=== PATIENT | female | born 1960 | race Caucasian/White ===

== ENCOUNTER 2017-01-19 09:50 | Emergency (ER) | payer BC ==
[2017-01-19 10:12] VITALS: BP 141/86
--- NOTE | 2017-01-19 10:28 | UC ---
Throat Pain/Nasal Roverto HPI - HPI Summary HPI Summary: 56 year old with sinus pressure Frontal sinus pain for 6 days, sx started with cough [ End ] - History of Current Complaint Chief Complaint: UCRespiratory Stated Complaint: SINUS Time Seen by Provider: 01/19/17 10:22 Hx Obtained From: Patient Hx Last Menstrual Period: 7 yr Onset/Duration: Gradual Onset Severity: Mild Cough: Productive Associated Signs & Symptoms: Positive: Sinus Discomfort, Nasal Discharge - Allergies/Home Medications Allergies/Adverse Reactions: Allergies Allergy/AdvReac Type Severity Reaction Status Date / Time Erythromycin AdvReac Intermediate Diarrhea Verified 01/19/17 10:13 Home Medications: Home Medications ValACYclovir (*) [Valtrex 500 mg (*)] 500 mg PO DAILY 01/19/17 [History Confirmed 01/19/17] PMH/Surg Hx/FS Hx/Imm Hx Previously Healthy: Yes Cardiovascular History: Hypertension Psychological History: Anxiety, Depression - Surgical History Surgical History: Yes Surgery Procedure, Year, and Place: HYSTERECTOMY, BLADDER BX, right 2nd toe - Family History Known Family History: Positive: Hypertension - mother Negative: Cardiac Disease, Diabetes - Social History Occupation: Employed Full-time Lives: With Family Alcohol Use: None Substance Use Type: None Smoking Status (MU): Never Smoked Tobacco - Immunization History Most Recent Tetanus Shot: FEB 2016 Review of Systems Constitutional: Fatigue ENT: Sore Throat, Ear Ache, Nasal Discharge, Sinus Congestion, Sinus Pain/ Tenderness Respiratory: Cough Is Patient Immunocompromised?: No All Other Systems Reviewed And Are Negative: Yes Physical Exam Triage Information Reviewed: Yes Appearance: Well-Appearing, No Pain Distress, Well-Nourished Vital Signs: Initial Vital Signs Temp 98.4 F 01/19/17 10:05 Pulse 63 01/19/17 10:05 BP 141/86 01/19/17 10:05 Pulse Ox 99 01/19/17 10:05 Vital Signs Reviewed: Yes Eye Exam: Normal ENT Exam: Normal ENT: Positive: Pharynx normal, Nasal congestion, TM dull, Other: - bilateral frontal sinus tenderness. Negative: Tonsillar exudate Dental Exam: Normal Neck exam: Normal Neck: Positive: 1 Respiratory Exam: Normal Cardiovascular Exam: Normal Musculoskeletal Exam: Normal Neurological Exam: Normal Psychological Exam: Normal Skin Exam: Normal Throat Pain/Nasal Course/Dx - Course Course Of Treatment: Viral at this time -- start Claritin and Flonase in the AM and in the PM use benadryl and Netti Pot. If your symptoms worsen over the next 3-4 days then start Augmentin - Differential Dx/Diagnosis Differential Diagnosis/HQI/PQRI: Sinusitis, Tonsillitis Provider Diagnoses: Sinusitis Discharge - Discharge Plan Condition: Good Disposition: HOME Prescriptions: Amoxicillin/Clavulanate TAB* [Augmentin TAB 875*] 875 mg PO BID #20 tab Patient Education Materials: Sinusitis (ED) Forms: *Work Release Referrals: No Primary Care Phys,NOPCP [Primary Care Provider] - 4 Days Additional Instructions: As we discussed -- start Claritin and Flonase in the AM and in the PM use benadryl and Netti Pot. If your symptoms worsen over the next 3-4 days then start Augmentin
== END 2017-01-19 10:45 | disposition home or self-care (01) ==
LOC: UCCORT 09:50
DX: J32.9 Chronic sinusitis, unspecified (principal); I10 Essential (primary) hypertension; F41.8 Other specified anxiety disorders; Z88.1 Allergy status to other antibiotic agents
CPT/HCPCS: 99212; G0463

== ENCOUNTER 2018-11-09 14:53 | Emergency (ER) | payer BC, OTHER ==
[2018-11-09 16:07] VITALS: BP 130/69
--- NOTE | 2018-11-09 16:16 | UC ---
General HPI - HPI Summary HPI Summary: L foot ran over by a wheelchair while at work today. pain base of great toe area. - History of Current Complaint Chief Complaint: UCLowerExtremity Stated Complaint: LT FOOT INJURY Time Seen by Provider: 11/09/18 15:56 Hx Obtained From: Patient Hx Last Menstrual Period: 7 yr Onset/Duration: Sudden Onset Timing: Constant Pain Intensity: 4 Aggravating: walking Associated Signs & Symptoms: Negative: Edema, Fever - Allergy/Home Medications Allergies/Adverse Reactions: Allergies Allergy/AdvReac Type Severity Reaction Status Date / Time erythromycin base AdvReac Diarrhea Verified 11/09/18 15:58 Home Medications: Home Medications Guaifenesin/Dextromethorphan [Mucinex Dm ER 600-30 mg Tablet] 1 each PO Q12H PRN 11/09/18 [History Confirmed 11/09/18] PMH/Surg Hx/FS Hx/Imm Hx Cardiovascular History: Hypertension Psychological History: Depression - Surgical History Surgical History: Yes Surgery Procedure, Year, and Place: HYSTERECTOMY, BLADDER SX/BX, right 2nd toe - Family History Known Family History: Positive: Hypertension - mother Negative: Cardiac Disease, Diabetes - Social History Occupation: Employed Full-time Alcohol Use: None Substance Use Type: None Smoking Status (MU): Never Smoked Tobacco - Immunization History Most Recent Tetanus Shot: FEB 2016 Review of Systems All Other Systems Reviewed And Are Negative: No Constitutional: Negative: Fever Skin: Negative: Rash Musculoskeletal: Negative: Decreased ROM, Edema Neurological: Negative: Numbness Physical Exam Triage Information Reviewed: Yes Appearance: Well-Appearing Vital Signs: Initial Vital Signs Temp 98.9 F 11/09/18 16:01 Pulse 71 11/09/18 16:01 Resp 16 11/09/18 16:01 BP 130/69 11/09/18 16:01 Pulse Ox 98 11/09/18 16:01 Vital Signs Reviewed: Yes Cardiovascular: Positive: RRR Musculoskeletal: Positive: Other: - LLE: knee, achilles and ankle non tender. foot without deformity but tendewr around base of great toe. s/v/m is intact. Neurological: Positive: Alert Psychological: Positive: Age Appropriate Behavior Skin Exam: Normal Diagnostics - Radiology No standard instances Radiology Interpretation Completed By: Radiologist - IMPRESSION: POSSIBLE NONDISPLACED FRACTURE AT THE BASE OF THE THIRD PROXIMAL PHALANX RECOMMEND CLINICAL CORRELATION FOR POINT TENDERNESS. Course/Dx - Diagnoses Provider Diagnosis: Nondisplaced fracture of lesser toe Discharge - Sign-Out/Discharge Documenting (check all that apply): Patient Departure All imaging exams completed and their final reports reviewed: Yes - Discharge Plan Condition: Stable Disposition: HOME Patient Education Materials: Toe Fracture (ED) Referrals: Terrance Grubbs MD [Medical Doctor] - As Soon As Possible Additional Instructions: post op shoe until cleared. - Billing Disposition and Condition Condition: STABLE Disposition: Home
== END 2018-11-09 17:26 | disposition home or self-care (01) ==
LOC: UCCORT 14:53
DX: S92.515A Nondisplaced fracture of proximal phalanx of left lesser toe(s), initial encounter for closed fracture (principal); V00.818A Other accident with wheelchair (powered), initial encounter; Y92.89 Other specified places as the place of occurrence of the external cause; Y99.0 Civilian activity done for income or pay; I10 Essential (primary) hypertension
CPT/HCPCS: 99211; G0463

== ENCOUNTER 2019-01-12 20:50 | Emergency (ER) | payer BC, OTHER ==
--- OUTSIDE RECORDS SUMMARY | 2019-01-12 20:55 | XMS REPORT | Continuity of Care Document ---
:1960 External Reference #:[id number] Author Name Dianne Mckeon MD (transmitted by agent of provider Stephanie Quiros) Address [address] [place] [id number] Problems Active Problems Provider Date Malignant tumor of urinary bladder Lraissa Patel D.O. Onset: 2011 Hematuria syndrome David Coello MD Onset: 05/25/2012 History of malignant neoplasm of bladder David Coello MD Onset: 2014 Social History Type Date Description Comments Sex Unknown Tobacco Use Start: Unknown Never Smoked Cigarettes Smoking Status Reviewed: 01/03/19 Never Smoked Cigarettes ETOH Use Patient denies alcohol use Allergies, Adverse Reactions, Alerts Active Allergies Reaction Severity Comments Date Erythromycin stomach ache and diarrhea 10/04/2010 Medications Active Medications SIG Qnty Indications Ordering Provider Date Lisinopril Unknown 20mg Tablets Valacyclovir HCL take 1 tablet by Unknown 500mg oral route twice Tablets a day for 3 days,prn Escitalopram Oxalate 1 by mouth every Unknown 20mg day Tablets Immunizations Description No Information Available Vital Signs Date Vital Result Comment 01/10/2019 11:58am Height 64 inches 5'4" Weight 272.00 lb Weight 123.379 kg BMI (Body Mass Index) 46.7 kg/m2 BP Systolic 137 mmHg BP Diastolic 87 mmHg Heart Rate 62 /min 12/15/2017 10:34am Height 64 inches 5'4" Weight 258.00 lb Weight 117.029 kg BMI (Body Mass Index) 44.3 kg/m2 BP Systolic 138 mmHg BP Diastolic 83 mmHg Heart Rate 73 /min Results Test Date Facility Test Result H/L Range Note 230 Ua Routine 01/10/2019 [facility] Ua Glucose Negative REF TO DR ADDRESS ON ORDER FOR (315)- - Ua Protein Negative Ua Nitrite Negative Ua Leuko Negative Ua Blood Negative Ua Color Not Entered Ua Ketones Negative Ua Clarity Not Entered Ua Specific [place] <=1.005 1.003-1.030 Ua PH 5.5 5.0-7.5 Ua Bilirubin Negative Ua Urobilinogen 0.2 E.U./dL 0.0-1.0 Procedures Date Code Description Status 10/16/2016 [id number] Mammogram Completed 10/16/2014 [id number] Colonoscopy Completed Medical Devices Description No Information Available Encounters Type Date Location Provider Dx Diagnosis Office Visit 01/10/2019 [facility] Dianne Z85.51 Personal history 11:[address]/ [facility]Rigoberto Mckeon of malignant Urology neoplasm of bladder N39.3 Stress incontinence (female) (male) Assessments Date Code Description Provider 01/10/2019 Z85.51 Personal history of malignant neoplasm of Dianne Wagoner MD bladder 01/10/2019 N39.3 Stress incontinence (female) (male) Dianne Mckeon MD Plan of Treatment Future Appointment(s):01/13/2020 10:40 am - Dianne Mckeon MD at [facility]/ [facility].PIda Ciksuyj3001/10/2019 - Dianne Mckeon MDZ85.51 Personal history of malignant neoplasm of bladderComments:No evidence of recurrence at last check. She will be due for cystoscopy at next visit.N39.3 Stress incontinence (female) (male)Comments:The patient has concern of stress incontinence. We talked about various options for treatment. Sheunderstands the medications generally are infective. Surgery usually works. The patient wants to try to lose weight first since she thinks this is driving much of her leakage. I think that would be a reasonable approach. Functional Status Description No Information Available Mental Status Description No Information Available Referrals Description No Information Available
--- NOTE | 2019-01-12 21:07 | UC ---
UC General HPI - HPI Summary HPI Summary: day 8 of sinus congestion, pressure and headache plus cough with chest congestion. the sinus symptoms are improving. no cp, fever. no hx asthma or copd. occasional wheezing. pt had some diarrhea once today which she attributes to all the otc medication she has tried for this. - History of Current Complaint Stated Complaint: COUGH Time Seen by Provider: 01/12/19 21:01 Hx Obtained From: Patient Hx Last Menstrual Period: 7 yr Onset/Duration: Gradual Onset - Allergy/Home Medications Allergies/Adverse Reactions: Allergies Allergy/AdvReac Type Severity Reaction Status Date / Time erythromycin base AdvReac Diarrhea Verified 01/12/19 20:57 Home Medications: Home Medications Albuterol 2.5MG/3ML (0.083%)* [Ventolin 2.5 MG/3 ML NEB.JOZEF*] 2.5 mg INH ONCE PRN 01/12/19 [History Confirmed 01/12/19] Dm/P-Ephed/Acetaminoph/Doxylam [Nighttime D Cold-Flu Rlf Liq] 1 udc PO ONCE PRN 01/12/19 [History Confirmed 01/12/19] Guaifenesin/Dextromethorphan [Tussin Dm Liquid] 1 udc PO Q4H PRN 01/12/19 [ History Confirmed 01/12/19] Ibuprofen/Pseudoephedrine HCl [Advil Cold & Sinus] 1 tab PO Q6H PRN 01/12/19 [ History Confirmed 01/12/19] Menthol [Strawn] 3.2 mg MM DAILY PRN 01/12/19 [History Confirmed 01/12/19] PMH/Surg Hx/FS Hx/Imm Hx Cardiovascular History: Hypertension Psychological History: Depression - Surgical History Surgical History: Yes Surgery Procedure, Year, and Place: HYSTERECTOMY, BLADDER SX/BX, right 2nd toe - Family History Known Family History: Positive: Hypertension - mother Negative: Cardiac Disease, Diabetes - Social History Occupation: Employed Full-time Alcohol Use: None Substance Use Type: None Smoking Status (MU): Never Smoked Tobacco - Immunization History Most Recent Tetanus Shot: FEB 2016 Review of Systems All Other Systems Reviewed And Are Negative: No Constitutional: Negative: Fever, Chills Eyes: Negative: Eye Redness ENT: Positive: Sinus Congestion. Negative: Sore Throat, Ear Ache Respiratory: Positive: Cough. Negative: Shortness Of Breath Cardiovascular: Negative: Palpitations, Chest Pain Gastrointestinal: Positive: Diarrhea - x1. Negative: Abdominal Pain, Vomiting, Nausea Neurological: Positive: Headache Physical Exam Triage Information Reviewed: Yes Appearance: Well-Appearing Vital Signs Reviewed: Yes Eyes: Positive: Conjunctiva Clear ENT: Positive: Pharynx normal, Nasal congestion, Nasal drainage - clear, TMs normal Neck: Positive: Supple, Nontender, No Lymphadenopathy Respiratory: Positive: Lungs clear, No respiratory distress, Decreased breath sounds, Other: - deep congested cough.. Negative: Crackles, Rhonchi, Wheezing Cardiovascular: Positive: RRR, No Murmur Abdomen Description: Positive: Nontender Musculoskeletal: Positive: ROM Intact Neurological: Positive: Alert Psychological: Positive: Age Appropriate Behavior Skin Exam: Normal Re-Evaluation - Re-Evaluation First Eval Re-Evaluation Time: 21:45 Change: Improved - much improved aeration and less cough. Course/Dx - Differential Dx - Multi-Symptom Differential Diagnoses: Other - non toxic. no concern for pneumonia and sinus symptoms are improving. antibiotic not indicated. - Diagnoses Provider Diagnosis: URI (upper respiratory infection), Bronchitis Discharge ED - Sign-Out/Discharge Documenting (check all that apply): Patient Departure All imaging exams completed and their final reports reviewed: No Studies - Discharge Plan Condition: Stable Disposition: HOME Prescriptions: predniSONE TAB* [Deltasone 20 MG TAB*] 40 mg PO DAILY 4 Days #8 tab Patient Education Materials: Upper Respiratory Infection (DC), Acute Bronchitis (ED) Referrals: Tori Prieto UC ARCHITECT [Primary Care Provider] - 5 Days Additional Instructions: USE THE ALBUTEROL INHALER 2 PUFFS EVERY 6 HOURS. - Billing Disposition and Condition Condition: STABLE Disposition: Home
[2019-01-12 21:09] VITALS: BP 126/71
[2019-01-12] MEDS ORDERED: Albuterol 2.5 MG/3 ML NEB.SOL* (0.083%) INH ONE (21:16)
[2019-01-12] MEDS ORDERED: predniSONE TAB* 20 MG PO ONE (21:16)
[2019-01-12] MEDS ORDERED: Albuterol HFA INHALER* 8 gm MDI INH ONE (21:43)
== END 2019-01-12 22:03 | disposition home or self-care (01) ==
LOC: UCCORT 20:50
DX: J06.9 Acute upper respiratory infection, unspecified (principal); J40 Bronchitis, not specified as acute or chronic; Z88.1 Allergy status to other antibiotic agents; I10 Essential (primary) hypertension
CPT/HCPCS: 99213; A9270-GY; G0463; J7512